=== PATIENT | female | born 1970 | race Caucasian/White ===

== ENCOUNTER 2016-11-09 10:59 | Emergency (ER) | payer BC ==
[2016-11-09 11:09] VITALS: BP 139/86
[2016-11-09] MEDS ORDERED: HYDROcodone/ACETAMIN 5-325 MG* 1 TAB PO ONE (12:01)
--- NOTE | 2016-11-09 12:01 | UC ---
Shoulder Pain HPI - HPI Summary HPI Summary: fell back in to a wall last night - History of Current Complaint Chief Complaint: UCUpperExtremity Stated Complaint: RIGHT SHOULDER PAIN Time Seen by Provider: 11/09/16 11:55 Hx Obtained From: Patient Hx Last Menstrual Period: irreg, 1 month ago ?: No Onset/Duration: Sudden Onset, Lasting Hours - happened 12 hours ago, Still Present Timing: Constant Severity Initially: Severe Severity Currently: Severe Location Of Pain: Is Discrete @ - right shoulder, elbow Pain Intensity: 10 Pain Scale Used: 0-10 Numeric Character: Aching, Throbbing Aggravating Factor(s): Movement Alleviating Factor(s): Ice Associated Signs And Symptoms: Positive: Swelling Related History: Dominant Hand Right - Allergies/Home Medications Allergies/Adverse Reactions: Allergies Allergy/AdvReac Type Severity Reaction Status Date / Time No Known Allergies Allergy Verified 11/09/16 11:10 PMH/Surg Hx/FS Hx/Imm Hx Previously Healthy: No Endocrine History Of: Reports: Thyroid Disease Cardiovascular History Of: Reports: Hypertension - Surgical History Surgical History: Yes Surgery Procedure, Year, and Place: Partial Thyroidectomy, 2012, [facility] Dr. Gambino. Artur SECTION - Family History Known Family History: Positive: Hypertension - Social History Occupation: Disabled - out on disability for 2 more weeks after a bunion surgery Alcohol Use: Occasionally Substance Use Type: None Smoking Status (MU): Heavy Every Day Tobacco Smoker Type: Cigarettes Amount Used/How Often: 1 PPD Length of Time of Smoking/Using Tobacco: 27 Years Have You Smoked in the Last Year: Yes When Did the Patient Quit Smoking/Using Tobacco: 11/09/13 Household Exposure Type: Cigarettes - Immunization History Most Recent Influenza Vaccination: May 2013 Review of Systems Constitutional: Negative Skin: Negative Eyes: Negative ENT: Negative Respiratory: Negative Cardiovascular: Negative Gastrointestinal: Negative Genitourinary: Negative Motor: Decreased ROM - right shoulder, elbow Neurovascular: Negative Musculoskeletal: Arthralgia Neurological: Negative Psychological: Negative All Other Systems Reviewed And Are Negative: Yes Physical Exam Triage Information Reviewed: Yes Appearance: Well-Appearing, Well-Nourished, Pain Distress Vital Signs: Initial Vital Signs Temp 99.5 F 11/09/16 11:03 Pulse 73 11/09/16 11:03 Resp 14 11/09/16 11:03 BP 139/86 11/09/16 11:03 Pulse Ox 98 11/09/16 11:03 Vital Signs Reviewed: Yes Eye Exam: Normal Eyes: Positive: Conjunctiva Clear ENT Exam: Normal ENT: Positive: Normal ENT inspection, Hearing grossly normal. Negative: Nasal congestion, Nasal drainage, Trismus, Muffled/hoarse voice Dental Exam: Normal Neck exam: Normal Neck: Positive: Supple, Nontender, No Lymphadenopathy Respiratory Exam: Normal Respiratory: Positive: Chest non-tender, Lungs clear, Normal breath sounds, No respiratory distress, No accessory muscle use Cardiovascular Exam: Normal Cardiovascular: Positive: RRR, No Murmur, Pulses Normal, Brisk Capillary Refill Musculoskeletal Exam: Normal Musculoskeletal: Positive: No Edema, Strength Limited @ - right arm, ROM Limited @ - right shoulder,right elbow Neurological Exam: Normal Psychological Exam: Normal Skin Exam: Normal Diagnostics - Laboratory Diagnostic Studies Completed/Ordered: small osteocondroma, no acute bone injuries Re-Evaluation - Re-Evaluation First Eval Change: Improved - n/m/c intact proximal and distal to injury Shoulder Course/Dx - Course Assessment/Plan: rice, sling, ibuprofen follow with ortho if needed - Differential Dx/Diagnosis Differential Diagnosis/HQI/PQRI: Contusion, Rotator Cuff Injury, Sprain, Strain Provider Diagnoses: contusion right shoulder Discharge - Discharge Plan Condition: Stable Disposition: HOME Prescriptions: Ibuprofen TAB* [Motrin TAB* 600 MG] 600 mg PO Q6H PRN #30 tab PRN Reason: pain Patient Education Materials: Contusion in Adults (ED), RICE Therapy (ED), Shoulder Pain (ED) Referrals: Shivam Romano MD [Medical Doctor] - 5 Days Carl Arango PA [Primary Care Provider] -
--- NOTE | 2016-11-09 13:04 | RAD ---
INDICATION: Right shoulder injury. TECHNIQUE: 3 views of the right shoulder were obtained. FINDINGS: The bones are in normal alignment. No fracture is seen. There is a small bony exostosis present arising from the proximal diaphysis of the humerus possibly representing a small osteochondroma. Joint spaces appear maintained. IMPRESSION: 1. NO EVIDENCE FOR FRACTURE. 2. POSSIBLE SMALL OSTEOCHONDROMA ARISING FROM THE PROXIMAL HUMERUS.
--- NOTE | 2016-11-09 13:05 | RAD ---
INDICATION: Right elbow injury. TECHNIQUE: 4 views of the right elbow were obtained. FINDINGS: The bones are normal alignment. No joint effusion or acute fracture is seen. There is a small calcification adjacent to the lateral epicondyle suggestive of calcific tendinitis. IMPRESSION: NO EVIDENCE FOR FRACTURE.
== END 2016-11-09 13:31 | disposition home or self-care (01) ==
LOC: UCCORT 10:59
DX: S40.011A Contusion of right shoulder, initial encounter (principal); W18.09XA Striking against other object with subsequent fall, initial encounter; Y93.9 Activity, unspecified; Y92.9 Unspecified place or not applicable; E07.9 Disorder of thyroid, unspecified; I10 Essential (primary) hypertension; F17.210 Nicotine dependence, cigarettes, uncomplicated
CPT/HCPCS: 99213; G0463

== ENCOUNTER 2016-11-20 10:54 | Emergency (ER) | payer BC ==
[2016-11-20 11:03] VITALS: BP 131/70
--- NOTE | 2016-11-20 11:33 | UC ---
Shoulder Pain HPI - HPI Summary HPI Summary: right shoulder pain x 2 weeks + s/p fall on her right shoulder 2 weeks ago , was seen at the urgent care, negative xray for any fracture or dislocation, cont. to have pain and swelling of the right shoulder limited r/o with abduction and internal rotation , - History of Current Complaint Chief Complaint: UCUpperExtremity Stated Complaint: RIGHT ARM/SHOULDER RECHECK Time Seen by Provider: 11/20/16 11:07 Hx Obtained From: Patient Hx Last Menstrual Period: 11/15/16 Onset/Duration: Sudden Onset, Lasting Weeks - 2, Still Present Timing: Constant Severity Initially: Moderate Severity Currently: Moderate Pain Intensity: 10 Pain Scale Used: 0-10 Numeric Character: Aching Aggravating Factor(s): Movement, Lifting, Flexion, Extension, Internal Rotation , External Rotation, Abduction Alleviating Factor(s): Nothing Associated Signs And Symptoms: Positive: Swelling, Weakness. Negative: Redness , Bruising, Fever - Allergies/Home Medications Allergies/Adverse Reactions: Allergies Allergy/AdvReac Type Severity Reaction Status Date / Time No Known Allergies Allergy Verified 11/20/16 11:03 PMH/Surg Hx/FS Hx/Imm Hx Endocrine History Of: Reports: Thyroid Disease Cardiovascular History Of: Reports: Hypertension - Surgical History Surgical History: Yes Surgery Procedure, Year, and Place: Partial Thyroidectomy, 2012, [facility] Dr. Gambino. C SECTION - Family History Known Family History: Positive: Hypertension - Social History Alcohol Use: Rare Substance Use Type: None Smoking Status (MU): Heavy Every Day Tobacco Smoker Type: Cigarettes Amount Used/How Often: 1 PPD Length of Time of Smoking/Using Tobacco: 27 Years Have You Smoked in the Last Year: Yes When Did the Patient Quit Smoking/Using Tobacco: 11/09/13 Household Exposure Type: Cigarettes - Immunization History Most Recent Influenza Vaccination: May 2013 Review of Systems Constitutional: Negative Skin: Negative Eyes: Negative ENT: Negative Respiratory: Negative Musculoskeletal: Arthralgia - right shoulder pain All Other Systems Reviewed And Are Negative: Yes Physical Exam Triage Information Reviewed: Yes Appearance: Well-Appearing, No Pain Distress, Well-Nourished Vital Signs: Initial Vital Signs Temp 98.5 F 11/20/16 10:58 Pulse 61 11/20/16 10:58 Resp 18 11/20/16 10:58 BP 131/70 11/20/16 10:58 Pulse Ox 98 11/20/16 10:58 Vital Signs Reviewed: Yes Eyes: Positive: Conjunctiva Clear ENT Exam: Normal ENT: Positive: Normal ENT inspection, Hearing grossly normal, Pharynx normal Neck exam: Normal Neck: Positive: Supple, Nontender, No Lymphadenopathy Respiratory: Positive: Chest non-tender, Lungs clear, Normal breath sounds Cardiovascular: Positive: RRR, No Murmur, Pulses Normal Musculoskeletal: Positive: Other: - right shoulder: + tenderness lateral shoulder, + swelling, Pain with flexion, abduction, internal and external rotation limited stregth on flexion , extension and internal rotation Shoulder Course/Dx - Differential Dx/Diagnosis Provider Diagnoses: right shoulder pain Discharge - Discharge Plan Condition: Stable Disposition: HOME Prescriptions: Naproxen 500 mg PO BID #20 tab Patient Education Materials: Shoulder Pain (ED) Forms: *Work Release Referrals: Shivam Romano MD [Medical Doctor] - As Soon As Possible Carl Arango PA [Primary Care Provider] - Additional Instructions: concern about Rotator cuff injury please call the orth physician for eval and tx]
== END 2016-11-20 11:25 | disposition home or self-care (01) ==
LOC: UCCORT 10:54
DX: M25.511 Pain in right shoulder (principal); E07.9 Disorder of thyroid, unspecified; I10 Essential (primary) hypertension; E89.0 Postprocedural hypothyroidism; F17.210 Nicotine dependence, cigarettes, uncomplicated
CPT/HCPCS: 99212; G0463

== ENCOUNTER 2016-12-10 09:58 | Day surgery (SDC) | payer BC ==
--- NOTE | 2016-12-09 17:03 | HP ---
DATE OF ADMISSION: 12/10/2016. DATE OF OFFICE VISIT: 12/09/2016. ATTENDING SURGEON: Dr. Vivian Darling. (DICTATED BY RAMIREZ FERRARI) PROCEDURE: Right shoulder arthroscopic rotator cuff repair, decompression and debridement. CHIEF COMPLAINT: Right shoulder pain. HISTORY OF PRESENT ILLNESS: Ada is a 46-year-old female who presents to the clinic with ongoing right shoulder pain due to a rotator cuff tear and biceps tendonitis. She has failed conservative measures and therefore agreed to undergo a right shoulder arthroscopic rotator cuff repair, decompression, and debridement with Dr. Darling on 12/10/16. PAST MEDICAL HISTORY: 1. Hypertension. 2. Hypercholesterolemia. 3. Thyroid disease. 4. Chronic kidney disease. PAST SURGICAL HISTORY: 1. Partial thyroidectomy. 2. . 3. Bunion repair. MEDICATIONS: 1. Percocet 5/325 one tab by mouth every 4 hours as needed for pain. 2. Levothyroxine 200 mcg one by mouth daily. 3. Naproxen 500 mg one by mouth twice a day. 4. Ramipril 2.5 mg one by mouth daily. ALLERGIES: No known drug allergies. FAMILY HISTORY: Positive for cancer, Lupus, hypertension, and diabetes. Denies family history of DVT, PE or complications with anesthesia. SOCIAL HISTORY: She lives with her spouse. She is disabled. She is a heavy smoker, she smokes five or six cigarettes a day. She reports occasional alcohol consumption. She denies illegal drug use. REVIEW OF SYSTEMS: General: Negative for fevers, chills, night sweats. No known anesthesia problems. HEENT: Negative for headache, lightheadedness, or syncopal episodes. Integumentary: Negative for abrasions, lesions, or open wounds. Cardiothoracic: Negative for chest pain, palpitations, or edema. Positive for hypertension. Pulmonary: Negative for shortness of breath with exertion, chronic cough, or COPD. GI: Negative for nausea, vomiting, diarrhea , constipation or GERD. : Negative for nocturia, urinary frequency, history of UTI, or kidney problems. Musculoskeletal: Positive for current complaint. Neurologic: Negative for numbness, tingling, history of seizure, stroke, or epilepsy. Endocrine: Positive for thyroid disease. Negative for diabetes. Heme: Negative for easy bruising, bleeding disorder, history of DVT. Infectious Disease: Negative for history of MRSA, hep C, or HIV. PHYSICAL EXAMINATION GENERAL: Well-developed, well-nourished, 46-year-old female in no acute distress. VITAL SIGNS: Height 62, weight 186, BMI 34.0. Pulse 63, blood pressure 131/87 , respiratory rate 16, temperature 98.9. HEENT: Normocephalic, atraumatic. Throat clear. NECK: Supple. CARDIO: Regular rate and rhythm. S1, S2. No murmurs, gallops, or rubs. No edema. PULMONARY: Lungs are clear to auscultation bilaterally. No wheezing, rhonchi or rales. ABDOMEN: Positive bowel sounds. Soft, nontender. MUSCULOSKELETAL: Right upper extremity: The skin is intact. No warmth or erythema. Nontender to palpation. Nontender to AC joint. Forward flex 150, abduction 150, external rotation 45, T10. +4/5 strength in the infraspinatus and supraspinatus testing. +5/5 strength in subscapularis testing. Positive Neer, , [place]. +2 radial pulse, +2 ulnar pulse. Sensation is intact to light touch distally. NEUROLOGIC: Alert and oriented times three. Cranial nerves intact. Sensation intact to light touch. STUDIES: MRI of the right shoulder revealed full thickness rotator cuff tear involving the supraspinatus and infraspinatus tendon. IMPRESSION: Right shoulder rotator cuff tear and biceps tendonitis. PLAN: The patient is scheduled to undergo a right shoulder arthroscopic rotator cuff repair, decompression and debridement by Dr. Darling on 12/10/2016. She will return to the office in 10 to 14 days postop for follow-up and suture removal. Percocet will be used for postop pain management. RAMIREZ FERRARI [id number]/[facility] #: [id number] MTDYarelis
[~2016-12-10 09:58] MED LIST: Buffered Lidocaine 0.9% SYRIN* 5 ML/SYR SYRINGE ONE; Famotidine IV* 10 MG/ML 2 ML (20 mg) IV ONE; Famotidine IV* 10 MG/ML 2 ML (20 mg) ONE; Morphine INJ* 2 MG/ML 1 ML SYRINGE IV PRN; PROCHLORPERAZINE INJ 5 MG/ML 2 ML VIAL IV PRN; Scopolamine 1.5 mg* PATCH TRANSDERM PRN; ceFAZolin 2 GM PREMIX(*) 2 GM/50 ML BAG IVPB ONE; oxyCODONE/Acetamin 5/325 MG* TAB PO PRN
[2016-12-10 10:11] LABS: UR Preg Internal Control QC Line Present
[2016-12-10] MEDS: Buffered Lidocaine 0.9% SYRIN* 5 ML/SYR SYRINGE INTRADERM ONE ×2 (11:07→11:08)
[2016-12-10] MEDS ORDERED: Midazolam* 1 MG/ML 5 ML VIAL (5 MG) ONE (11:41)
[2016-12-10] MEDS ORDERED: fentaNYL* 50 MCG/ML 2 ML VIAL (100 MCG VIAL) ONE ×2 (11:41→16:18)
[2016-12-10] MEDS ORDERED: KETAMINE HCL* 50 MG/ML 10 ML VIAL ONE (11:41)
[2016-12-10 11:45] LABS: BUN/Creatinine Ratio 12.7 (8-20); Calcium 9.3 mg/dL (8.6-10.3); EGFR Non-African American 87.9 (>60); Potassium 3.8 mmol/L (3.5-5.0)
[2016-12-10] MEDS ORDERED: PROCHLORPERAZINE INJ 5 MG/ML 2 ML VIAL ONE (14:41)
[2016-12-10] MEDS ORDERED: Ondansetron INJ* 2 MG/ML VIAL ONE (14:41)
[2016-12-10] MEDS ORDERED: Lidocaine 2% PF * 5 ML VIAL ONE (14:41)
[2016-12-10] MEDS ORDERED: Dexamethasone IV* 4 MG/ML 1 ML (4 MG) ONE (14:41)
[2016-12-10] MEDS ORDERED: Propofol* 10 MG/ML 20 ML BTL IV PUSH ONE (14:41)
[2016-12-10] MEDS ORDERED: Bupivacaine 0.25% SDV* 30 ML ONE (14:42)
[2016-12-10] MEDS: fentaNYL* 50 MCG/ML 2 ML VIAL (100 MCG VIAL) IV PRN ×2 (16:19→16:39)
[2016-12-10] MEDS ORDERED: oxyCODONE/Acetamin 5/325 MG* TAB ONE (16:21)
[2016-12-10 17:09] VITALS: BP 138/87
[2016-12-13] MEDS ORDERED: Scopolomine PATCH Remove* 1 NOTE MISC PATCH OFF ONE (05:58)
--- NOTE | 2016-12-14 05:01 | OP ---
CC: Primary Care Physician OPERATIVE REPORT: DATE OF OPERATION: 12/10/16 DATE OF : 66 ATTENDING SURGEON: Vivian Darling MD JACQUARD LACE WEAVER: RAMIREZ Leonard As workforce development assistant was needed for the entirety of the case to help with positioning, traction, and was utilized throughout all portions of the case. ANESTHESIOLOGIST: Dr. Campuzano. ANESTHESIA: General interscalene block. PRE-OP DIAGNOSIS: Massive rotator cuff tear of the supra and infraspinatus tendon with bicipital tendonitis. POST-OP DIAGNOSIS: Massive rotator cuff tear of the supra and infraspinatus tendon with bicipital tendonitis. OPERATIVE PROCEDURE: 1. Right shoulder arthroscopy. 2. Excessive glenohumeral debridement including biceps tenotomy. 3. Rotator cuff repair of the supra and infraspinatus tendon done arthroscopically. 4. Subacromial decompression. COMPLICATIONS: None. ESTIMATED BLOOD LOSS: Minimal. IMPLANTS USED: 3 [employer]hew Healicoil 4.75 mm and 2 Multifix anchors. INDICATIONS: Ada Wadsworth is a 46-year-old female who sustained an injury to her right shoulder when she fell and hit a wall while inebriated 6 weeks previously. She had had persistent pain and inability to raise her shoulder up. She is very young. She tried antiinflammatories. Tried some short course of physical therapy, underwent an injection by my partner, and underwent an MRI. The MRI demonstrated a full-thickness, mildly retracted tear of the supraspinatus tendon. After an extensive discussion of the risks and benefits and on discussion said that she had stiffness and poor range of motion at baseline. We talked about surgical treatment. She is 46 years old and she does smoke half a pack cigarettes per day and a discussion was made that she needs to quit smoking and I did recommend urgently fixing her rotator cuff. She verbalized understanding. She now elects to proceed with surgery. Risks and benefits were discussed at length, including but not limited to bleeding, infection, damage to nerves, vessels, surrounding structures, wound nonhealing, persistent pain, need for further surgery, risk of anesthesia, scarring, incomplete relief of symptoms, risk of DVT, and risk of retear. She has elected to proceed with surgery. DESCRIPTION OF PROCEDURE: The patient was greeted in the preoperative area by the attending surgeon. Correct extremity was marked and consent was confirmed. The patient then underwent interscalene nerve block by the anesthesiologist after which the patient was brought back to the operating suite where she was placed in supine position on the operating room table. She then underwent general anesthesia with endotracheal intubation after which the patient was placed in the right lateral decubitus position. The right arm was then draped unsterile with 10 pounds of traction. An axillary roll was placed, all bony prominences were padded. She was secured with pegboard. The right shoulder was then prepped and draped in the usual sterile fashion beginning with chlorhexidine soap, scrub, and alcohol wipe, and a final prep with ChloraPrep. After appropriate surgical pause indicating side, site, procedure, and administration of antibiotics, the standard posterolateral portal was made sharp with an 11 blade. The scope was positioned inside the joint and the joint was examined. There were grade 0 to 1 changes of the humeral head. There was grade 1 changes of the glenoid. There was unstable tearing of the anterior, posterior, and superior labrum. The biceps was torn at the anchor and subluxed anteriorly. The subscapularis was intact. The anterior recess was full of friable inflamed tissue. There was evidence of a full-thickness tear in the rotator cuff. After the anterior portal was made in an outside-in- fashion, the biceps tenotomy was then done and the stump was debrided back. The anterior, posterior, superior labrum were debrided and there was a small chondroplasty that was done. At this point, the scope was then repositioned in the subacromial space. In the subacromial space, there was abundant bursa present. The lateral portal was made in an [id number]. Shaver was used to debride this back to expose the rotator cuff which had been retracted to the level of the cartilage surface. This was a large U-shaped tear including the supra and infraspinatus tendon. The bursa was then removed. The anterior surface of the acromion was then skeletonized using the electrocautery device which revealed an anterolateral spur. The CA ligament was pealed back. The 4-0 oval annette was then used to perform a small acromioplasty. All excess fluid and debris was removed at this point. Attention was then directed to the rotator cuff. The cuff then carefully mobilized, it was somewhat stiff. The electrocautery device was used to help release this to allow for greater mobilization. At this point, the cuff tissue was debrided back using the shaver. The greater tuberosity was prepared in the usual fashion with the shaver and the electrocautery device as well as the rasp. At this point, three 4.75 Healicoil anchors were placed in the medial row beginning anteriorly to posterior, approximately 1 cm apart. These were placed with excellent purchase. The sutures were passed in a horizontal mattress configuration and were passed through the supraspinatus and then infraspinatus tendon. The knots were then tied down. Then, after division of the strands, approximately 5 strands were retained and passed through a knotless Multifix anchor which was then positioned along the lateral row anteriorly. The remanning sutures were then passed through a second Multifix anchor which was more posteriorly based, but also served as fixation of the lateral anchor. This allowed for compression of the cuff and for potentially greater stability. All fluid and debris was removed from the shoulder at this point. The portals were closed with 3-0 nylon. Sterile dressings were applied , the Cryo/Cuff as well as an UltraSling. She was awoken from anesthesia, transferred to PACU in stable condition. POSTOPERATIVE PLAN: She will be nonweightbearing. She will be in a sling for 6 weeks. She was advised to quit smoking. She will be discharged on pain medications. DVT prophylaxis considered but deferred due to no previous personal or family history. I will see the patient back in 10 to 14 days. [id number]/[facility] #: [id number] ANDRÉS
== END 2016-12-10 17:33 | disposition home or self-care (01) ==
LOC: OR 09:58
PROVIDERS: ATTEND Orthopaedic Surgery
DX: S46.011A Strain of muscle(s) and tendon(s) of the rotator cuff of right shoulder, initial encounter (principal); M75.21 Bicipital tendinitis, right shoulder; W19.XXXA Unspecified fall, initial encounter; Y92.9 Unspecified place or not applicable; I12.9 Hypertensive chronic kidney disease with stage 1 through stage 4 chronic kidney disease, or unspecified chronic kidney disease; N18.9 Chronic kidney disease, unspecified; E78.00 Pure hypercholesterolemia, unspecified; E03.9 Hypothyroidism, unspecified; F17.200 Nicotine dependence, unspecified, uncomplicated
CPT/HCPCS: 36415; 80048; 81025; A9270-GY; C1713; J0690; J0780; J1100; J2250; J2405; J2704; J3010

== ENCOUNTER 2017-01-23 17:16 | Emergency (ER) | payer BC ==
[2017-01-23 17:30] VITALS: BP 131/79
--- NOTE | 2017-01-23 18:21 | UC ---
Knee Pain HPI - HPI Summary HPI Summary: 46 yo female with 2 month hx of left knee pain/swelling, giving away and locking up no recalled trauma - History of Current Complaint Chief Complaint: UCLowerExtremity Stated Complaint: LEFT KNEE SWELLING Time Seen by Provider: 01/23/17 17:20 Hx Obtained From: Patient Hx Last Menstrual Period: 11/15/16 Onset/Duration: Gradual Onset, Lasting Weeks Severity Initially: Moderate Severity Currently: Severe Pain Intensity: 4 Pain Scale Used: 0-10 Numeric Aggravating Factor(s): Movement, Weight Bearing Alleviating Factor(s): Rest Associated Signs And Symptoms: Positive: Swelling Able to Bear Weight: Yes - Allergies/Home Medications Allergies/Adverse Reactions: Allergies Allergy/AdvReac Type Severity Reaction Status Date / Time No Known Allergies Allergy Verified 01/23/17 17:22 PMH/Surg Hx/FS Hx/Imm Hx Previously Healthy: Yes - Surgical History Surgical History: Yes Surgery Procedure, Year, and Place: Partial Thyroidectomy, 2012, [facility] Dr. Gambino. C SECTION 2003 - [place]. LEFT FOOT BUNIONECTOMY AND [place] 2016. RIGHT rotator cuff 12/10/16 - Family History Known Family History: Positive: Hypertension - Social History Alcohol Use: None Substance Use Type: Excessive Caffeine Substance Use Comment - Amount & Last Used: reports she drinks 2 full pots of coffee per day Smoking Status (MU): Heavy Every Day Tobacco Smoker Type: Cigarettes Amount Used/How Often: 2 PPD for 31 years Length of Time of Smoking/Using Tobacco: 27 Years Have You Smoked in the Last Year: Yes When Did the Patient Quit Smoking/Using Tobacco: 11/09/13 Household Exposure Type: Cigarettes - Immunization History Most Recent Influenza Vaccination: 2016 Most Recent Tetanus Shot: UTD Most Recent Pneumonia Vaccination: N/A Review of Systems Constitutional: Negative Skin: Negative Eyes: Negative ENT: Negative Respiratory: Negative Cardiovascular: Negative Gastrointestinal: Negative Genitourinary: Negative Motor: Negative Neurovascular: Negative Musculoskeletal: Arthralgia Neurological: Negative Psychological: Negative All Other Systems Reviewed And Are Negative: Yes Physical Exam Triage Information Reviewed: Yes Appearance: Well-Appearing, No Pain Distress, Well-Nourished Vital Signs: Initial Vital Signs Temp 98.8 F 01/23/17 17:24 Pulse 84 01/23/17 17:24 Resp 16 01/23/17 17:24 BP 131/79 01/23/17 17:24 Pulse Ox 99 01/23/17 17:24 Eye Exam: Normal ENT: Positive: Hearing grossly normal. Negative: Nasal congestion, Nasal drainage, Trismus, Muffled/hoarse voice Neck: Positive: Supple Respiratory: Positive: Lungs clear, Normal breath sounds, No respiratory distress Cardiovascular: Positive: RRR, No Murmur Musculoskeletal: Positive: Other: - see image Neurological: Positive: Alert Psychological Exam: Normal Skin Exam: Normal Knee Pain Course/Dx - Differential Dx/Diagnosis Provider Diagnoses: left knee pain. suspect menical tear. ? loose body Discharge - Discharge Plan Condition: Stable Disposition: HOME Patient Education Materials: Meniscus Tear (ED) Referrals: Shivam Romano MD [Medical Doctor] - 3 Days Additional Instructions: ice twice daily wear knee immobilizer when up walking I think you have torn cartilage in your knee causing your symptoms Images Front/Back of Body, Lg (Floyd): 1 - effusion, stable joint, tender medial and lateral joint lines , antalgic gait
--- NOTE | 2017-01-23 18:39 | RAD ---
Indication: LEFT knee medial and lateral pain and swelling for multiple months. Comparison: No relevant prior exams available on the [facility] PACS for comparison. Technique: LEFT knee: AP, tunnel, lateral, sunrise views. Report: Small suprapatellar joint effusion. Negative for fracture or malalignment. Minimal osteophytosis. Negative for significant joint space narrowing. Unremarkable soft tissue contours. IMPRESSION: Kellgren and Romie grade 1 osteoarthritis.
== END 2017-01-23 18:41 | disposition home or self-care (01) ==
LOC: UCCORT 17:16
DX: M25.562 Pain in left knee (principal); M17.12 Unilateral primary osteoarthritis, left knee; F17.210 Nicotine dependence, cigarettes, uncomplicated
CPT/HCPCS: 99212; G0463

== ENCOUNTER 2017-08-03 09:40 | Day surgery (SDC) | payer OTHER ==
--- NOTE | 2017-07-13 07:21 | HP ---
PREOPERATIVE HISTORY AND PHYSICAL: DATE OF ADMISSION/SURGERY: 08/03/17 DATE OF OFFICE VISIT: 07/10/17 PROCEDURE: Right shoulder arthroscopic rotator cuff repair. ATTENDING SURGEON: Vivian Darling MD.* (DICTATED BY RAMIREZ FERRARI) CHIEF COMPLAINT: Right shoulder pain. HISTORY OF PRESENT ILLNESS: Ada is a 46-year-old female who presents to the clinic for followup of her right shoulder. She has a history of a rotator cuff repair on the right side in November, however, has re-torn. She understands that she needs surgery, but has been working on smoking cessation with Chantix. She states that her pain has become worse in the past week. She rates it as an 8/10, severe pain especially at night. The patient is intermittent and very intense. She reports no recent injury or no recent falls. She is on her 6th day of Chantix and states that she has decreased from a pack of cigarettes a day down to 6 a day and is planning on completely quitting by this Thursday. She denies noticing fevers, chills and she is doing well otherwise. PAST MEDICAL HISTORY: 1. Hypertension. 2. Hypercholesterolemia. 3. Hypothyroidism. 4. Chronic kidney disease. PAST SURGICAL HISTORY: 1. Partial thyroidectomy. 2. . 3. Left foot bunion repair and right shoulder rotator cuff repair. Denies prior complications with anesthesia. MEDICATIONS: 1. Chantix 0.5 mg x11 and 1 mg x42, take as directed. 2. Levothyroxine 200 mcg one by mouth daily. 3. Ramipril 2.5 mg one by mouth daily. ALLERGIES: No known drug allergies. FAMILY HISTORY: Positive for cancer, lupus, hypertension, and diabetes. Denies family history of DVT or PE. SOCIAL HISTORY: She lives with her spouse. She is disabled. She smokes 6 cigarettes a day. She denies alcohol use. She denies illegal drug use. REVIEW OF SYSTEMS: A 14-point review of systems was reviewed with the patient. Positive for current complaint, otherwise negative. Denies fevers, chills, chest pain, or shortness of breath. Denies history of bleeding disorder. Denies history of DVT or PE. PHYSICAL EXAMINATION GENERAL: A 46-year-old well-developed, well-nourished female, in no acute distress. Alert and oriented x3. Appropriate mood and affect. VITAL SIGNS: Height 62 inches, weight 189 pounds, pulse 62, blood pressure 152/ 96, temperature 97.5, BMI of 34.6. HEENT: Normocephalic, atraumatic. PERRLA. Throat clear. NECK: Supple. PULMONARY: Lungs are clear to auscultation bilaterally. No wheezing, rhonchi, or rales. CARDIO: Regular rate and rhythm. S1 and S2. No murmurs, gallops, or rubs. No edema. ABDOMEN: Positive bowel sounds. Soft, nontender. MUSCULOSKELETAL: Right upper extremity, well healed surgical incision. No warmth or erythema. Forward flexion to 90, passive to 160, abduction to 80, passive to 150 with significant pain, external rotation to 50, internal rotation to posterior hip. +4/5 strength to rotator cuff testing. +2 radial pulse. Sensation is intact to light touch distally. NEUROLOGIC: Alert and oriented x 3. Cranial nerves are grossly intact. Sensation is intact to light touch. STUDIES: MR arthrogram of the right shoulder reveals a massive large tear involving the supraspinatus and infraspinatus. IMPRESSION: Right shoulder rotator cuff tear. PLAN: The patient is scheduled to undergo a right shoulder arthroscopic rotator cuff repair with Dr. Darling on 08/03/17. She will return to the office in 10-14 days postop for followup and suture removal. Percocet was sent for postop pain management and Keflex for antibiotic prophylaxis. RAMIREZ FERRARI [id number]/[facility] #: [id number] ANDRÉS
[~2017-08-03 09:40] MED LIST changes: +Buffered Lidocaine 0.9% SYRIN* 5 ML/SYR SYRINGE INTRADERM ONE; -Buffered Lidocaine 0.9% SYRIN* 5 ML/SYR SYRINGE ONE; -Famotidine IV* 10 MG/ML 2 ML (20 mg) IV ONE; -Famotidine IV* 10 MG/ML 2 ML (20 mg) ONE; -Morphine INJ* 2 MG/ML 1 ML SYRINGE IV PRN; -PROCHLORPERAZINE INJ 5 MG/ML 2 ML VIAL IV PRN; -Scopolamine 1.5 mg* PATCH TRANSDERM PRN; -ceFAZolin 2 GM PREMIX(*) 2 GM/50 ML BAG IVPB ONE; -oxyCODONE/Acetamin 5/325 MG* TAB PO PRN
[2017-08-03] MEDS ORDERED: ceFAZolin 2 GM in 100 MLS NS (*) BAG IVPB ONE (09:47)
[2017-08-03] MEDS ORDERED: fentaNYL* 50 MCG/ML 2 ML VIAL (100 MCG VIAL) ONE (12:27)
[2017-08-03] MEDS ORDERED: Midazolam* 1 MG/ML 2 ML VIAL (2 MG) ONE (12:28)
[2017-08-03] MEDS ORDERED: Bupivacaine 0.25% SDV* 30 ML ONE (12:29)
[2017-08-03] MEDS ORDERED: methylPREDNISolone ACETATE 80* 80 MG/ML 1 ML VIAL ONE (12:29)
[2017-08-03] MEDS ORDERED: ROPIVACAINE 5 MG/ML 30 ML BTL (0.5%) ONE (12:30)
[2017-08-03] MEDS ORDERED: Lidocaine 2% PF * 5 ML VIAL ONE (13:28)
[2017-08-03] MEDS ORDERED: Propofol* 10 MG/ML 20 ML BTL IV PUSH ONE (13:28)
[2017-08-03] MEDS ORDERED: Dexamethasone IV* 4 MG/ML 1 ML (4 MG) ONE (13:39)
[2017-08-03] MEDS ORDERED: Naloxone* 0.4 MG/ML 1 ML VIAL IV PRN (13:46)
[2017-08-03] MEDS ORDERED: fentaNYL* 50 MCG/ML 2 ML VIAL (100 MCG VIAL) IV PRN (13:46)
[2017-08-03] MEDS ORDERED: Ondansetron INJ* 2 MG/ML VIAL IV PRN (13:46)
[2017-08-03 15:15] VITALS: BP 138/77
--- NOTE | 2017-08-09 18:18 | OP ---
OPERATIVE REPORT: DATE OF OPERATION: 08/03/17 DATE OF : 66 SURGEON: Vivian Darling MD BRUSHER AND SHEARER: RAMIREZ Saldivar An construction project assistant was needed for the entirety of the case to help with positioning, retraction, and was utilized throughout all portion of the case. ANESTHESIOLOGIST: Dr. Mulligan. ANESTHESIA: General with interscalene block. PRE-OP DIAGNOSIS: Right shoulder failed rotator cuff repair. POST-OP DIAGNOSIS: Right shoulder failed massive rotator cuff repair of the infra and supraspinatus tendon. OPERATIVE PROCEDURE: 1. Removal of implant x3. 2. Revision decompression. 3. Extensive glenohumeral debridement with chondroplasty 4. Repair of massive retracted supra and infraspinatus tear in a double row fashion. COMPLICATIONS: None. ESTIMATED BLOOD LOSS: Minimal. IMPLANTS USED: Two 4.75 Healicoil and one Multifix. INDICATIONS: Ada Wadsworth is a 46-year-old female who underwent a previous rotator cuff repair with biceps tenotomy and decompression. This surgery was done in November 2016. She initially did well but there were questionable complaints. She also had a very massive tear and had a history of smoker, needless to say she had persistent pain after a couple of months of therapy and we imaged her to find that she had re-torn and now had a massive supra and infraspinatus tear. Risks and benefits of surgery were discussed at length including but are not limited to bleeding, infection, damage to nerves, vessels , surrounding structures, wound nonhealing, persistent pain, need for further surgery, scarring, stiffness, incomplete relief of symptoms, risks of anesthesia. The patient did confirm quitting smoking approximately 3 to 4 weeks prior to this after I gave her prescription for Chantix and she plans to not smoking for at least four months postoperatively. DESCRIPTION OF PROCEDURE: The patient was greeted in the preoperative area by the attending surgeon. Correct extremity was marked and consent was confirmed. Patient was then brought back to the operating suite, where she underwent interscalene nerve block by the anesthesiologist and she tolerated well. She underwent general anesthesia with endotracheal intubation after which she was placed in the left lateral decubitus position. All bony prominences were padded. She was secured with pegboard. The right shoulder was draped unsterile with 10 pounds of traction. The right shoulder was prepped and draped in the usual sterile fashion, beginning with chlorhexidine soap, scrub, and alcohol wipe and a final prep of ChloraPrep. After appropriate surgical pause indicating side, site, procedure and administration of antibiotics, the posterolateral portal was made sharply with an 11 blade. Scope was introduced into the joint. The joint was examined. There were grade 2 changes of the glenohumeral joint with small unstable fraying. The anterior portal was made in an outside-in fashion. There was evidence of full thickness massive tear of the supra and infraspinatus tendon. Subscap was intact. The shaver was used to debride the glenohumeral joint. There was evidence of full thickness massive tears. Scope was repositioned in the subacromial space. The undersurface of the acromion was skeletonized using electrocautery device. A revision decompression was then performed using electrocautery device with 4- 0 oval annette. There is abundant synovectomy and bursectomy present. There is evidence of split down the center of the infra and supraspinatus tendon with the flap tissues enveloped to a scar against the subdeltoid to the inferior aspect of the deltoid. It appeared to be a T shaped tear. She had completely failed the repair previously done. Every single suture and anchor that was placed with position on top of the tuberosity and they required being removed for repair to be done. The sutures were carefully cut and removed from the anchors. Any remaining pieces of anchors were also removed in the entirety. At least three large stranding sutures were removed as they were blocking placement of the newer anchors. The shaver was used to debride the unstable flaps. The electrocautery was used to remove the bursa from the undersurface of the deltoid. This allowed for some visualization of the tendon but the tendon was very hard to mobilize; therefore, releases had to be done above and below the rotator cuff using electrocautery device and blunt devices to prevent accidental damage to the nerve. The muscle cuff was fully mobilized and electrocautery device, the cuff was then prepared in a side-to- side fashion with two interrupted sutures repairing supra and infraspinatus tendon. Then the cuff was able to reapproximated to the bone. The greater tuberosity was then prepared in the usual fashion with the rasp as well as the arthroscopic annette. Once this was done , the cuff was then carefully mobilized. The anchors were placed with excellent purchase, two 4.75 Healicoil with excellent purchase. A small awl was then used to do a small microfracture to allow for extra points of fixation to the bone. The sutures were then passed in a horizontal mattress configuration and tagged down using arthroscopic knot tying technique. The remaining sutures were then passed through Multifix anchor, which was placed lateral to the previous Multifix. Once the repair was complete, final images were obtained. The wounds was copiously irrigated with sterile saline. The portals were closed with 3- 0 nylon. Sterile dressings were applied and a Cryo/ Cuff and UltraSling were applied. She was awoken from anesthesia and transferred to PACU in stable condition. POSTOPERATIVE PLAN: She will be nonweightbearing. She will be in the sling for approximately six weeks. She will be allowed no active range of motion for at least 12 weeks. She will be discharged on pain medications and antibiotics. She will be allowed elbow, hand, and wrist range of motion. She is not allowed any abduction and forward flexion of the shoulder. DVT prophylaxis considered but deferred due to no previous personal or family and I will see the patient back in 10 to 14 days. [id number]/[facility] #: [id number] MTDD
== END 2017-08-03 15:30 | disposition home or self-care (01) ==
LOC: OREAST 09:40
PROVIDERS: ATTEND Orthopaedic Surgery
DX: M75.101 Unspecified rotator cuff tear or rupture of right shoulder, not specified as traumatic (principal); E03.9 Hypothyroidism, unspecified; E78.00 Pure hypercholesterolemia, unspecified; N18.9 Chronic kidney disease, unspecified; F17.210 Nicotine dependence, cigarettes, uncomplicated; I12.9 Hypertensive chronic kidney disease with stage 1 through stage 4 chronic kidney disease, or unspecified chronic kidney disease
CPT/HCPCS: 81025; C1713; J1040; J1100; J2250; J2704; J2795; J3010

== ENCOUNTER 2017-11-16 12:11 | Day surgery (SDC) | payer OTHER ==
[~2017-11-16 12:11] MED LIST changes: +Dexamethasone IV* 4 MG/ML 1 ML (4 MG) IV SLOW PU ONE
[2017-11-16] MEDS ORDERED: ceFAZolin 2 GM PREMIX (*) 2 GM/50 ML BAG IVPB ONE (12:28)
[2017-11-16] MEDS ORDERED: Dexamethasone IV* 4 MG/ML 1 ML (4 MG) ONE (12:29)
[2017-11-16] MEDS ORDERED: Buffered Lidocaine 0.9% SYRIN* 5 ML/SYR SYRINGE ONE (12:51)
[2017-11-16] MEDS ORDERED: Atracurium* 10 MG/ML 10 ML VIAL ONE (13:44)
[2017-11-16] MEDS ORDERED: ROPIVACAINE 5 MG/ML 30 ML BTL (0.5%) ONE (13:44)
[2017-11-16] MEDS ORDERED: fentaNYL* 50 MCG/ML 2 ML VIAL (100 MCG VIAL) ONE (13:48)
[2017-11-16] MEDS ORDERED: Propofol* 10 MG/ML 20 ML BTL IV PUSH ONE (13:48)
[2017-11-16] MEDS ORDERED: Ondansetron INJ* 2 MG/ML VIAL ONE (13:48)
[2017-11-16] MEDS ORDERED: Midazolam* 1 MG/ML 5 ML VIAL (5 MG) ONE (13:48)
[2017-11-16] MEDS ORDERED: Ketorolac INJ* 30 MG/ML 1 ML VIAL ONE (13:48)
[2017-11-16] MEDS ORDERED: Naloxone* 0.4 MG/ML 1 ML VIAL IV PRN (15:05)
[2017-11-16] MEDS ORDERED: fentaNYL* 50 MCG/ML 2 ML VIAL (100 MCG VIAL) IV PRN (15:05)
[2017-11-16] MEDS ORDERED: DiMENhydriNATE IV* 50 MG/ML VIAL IV PUSH PRN (15:05)
[2017-11-16] MEDS ORDERED: oxyCODONE/Acetamin 5/325 MG* TAB PO PRN (15:05)
[2017-11-16 16:15] VITALS: BP 120/78
--- NOTE | 2017-11-17 19:19 | OP ---
CC: PCP OPERATIVE REPORT: DATE OF OPERATION: 11/16/17 DATE OF : 66 SURGEON: Vivian Darling MD SWIMMING POOL INSTALLER: RAMIREZ Saldivar An library assistant was needed for the entirety of the case to help with positioning, retraction, and was ut ilized throughout all portions of the case including deployment of the various anchors and sutures an d devices. ANESTHESIOLOGIST: Dr. Hughes. ANESTHESIA: General interscalene block. PRE-OP DIAGNOSIS: Right shoulder failed rotator cuff repair. POST-OP DIAGNOSIS: Right shoulder failed rotator cuff repair. OPERATIVE PROCEDURE: Right shoulder revision, rotator cuff repair of supraspinatus tendon with REGEN ETEN patch augmentation. COMPLICATIONS: None. ESTIMATED BLOOD LOSS: Minimal. IMPLANTS USED: One 4.75 Healicoil, 1 MultiFix, and 1 medium-sized patch with tendon and bone bettie . INDICATIONS: Ada Wadsworth is a 47-year-old female who had a previous rotator cuff repair, which h as already a revision, who was doing well postoperatively and then she fell at around 8 weeks postop, she was diagnosed with a retear, although was not the extent of the original tear. Risks and benefi ts of surgery were discussed at length. She has failed conservative management, had persistent pain. Risks include, but are not limited to bleeding, infection, damage to nerves, vessels, surrounding st ructures, wound nonhealing, persistent pain, need for surgery, scarring, stiffness, incomplete relief of symptoms, and risk of anesthesia. OPERATIVE NOTE: The patient was greeted in the preoperative area by the attending surgeon. Correct extremity was marked and consent was confirmed. The patient was brought back to the operating suite where she was placed in supine position on the operating table. She then underwent interscalene nerv e block by the anesthesiologist after which she was appropriately positioned in the bed in the latera l decubitus position with all bony prominences padded and secured with a pegboard. The right arm was draped unsterile with 10 pounds of traction. The right shoulder was then prepped and draped in the usual sterile fashion, beginning with chlorhexidine soap scrub and alcohol wipe and a final prep with ChloraPrep. After appropriate surgical pause indicating side, site, procedure, and administration of antibiotics, the standard posterolateral portal was made sharply with #11 blade. The scope was introduced into t he joint. The joint was examined. There was evidence of a full thickness tear of the anterior portio n of the supraspinatus tendon. Glenohumeral joint had grade 1 changes. There was abundant synovitis present. The quality of the tissue that was torn appeared to be thin. The sutures that have been pr eviously placed were visualized. The scope was then positioned in subacromial space and the cuff ten don was visualized posteriorly. The tear had healed, but the supraspinatus tear had failed. There wa s evidence of njes-jw-pncy suture and medial to that everything had healed fine. The cuff tissue was carefully mobilized. The sutures were removed from the tendon carefully. There was obvious stretch on this, as many of the sutures that could be possibly removed or removed as well as any remaining an chors. After this was done, the adhesions were also released from the bursal side and there were num erous adhesions. Once the cuff tissue was mobilized and the greater tuberosity was exposed, this was then rasped with a rasp as well as 4-0 oval annette to gently decorticate to allow for good bony bleedi ng bed. At this point, one 4.75 Healicoil was placed through a separate stab incision. This was amarjit walter in excellent purchase. The sutures were then passed through the tendon in a horizontal mattress configuration. The very most posterior one was passed in a atns-ij-shje between remaining posterior portion and supraspinatus as well as some of the infraspinatus and the newly torn supraspinatus tendo n. These were then tied down. A second free suture was then used to dcuu-pr-ghar repair at the most distal end of the supraspinatus because the side was bit of under coverage. At this point, all sutu re strands were passed through a lateral anchor, 4.75 Healicoil which was placed with excellent purch ase and allowed for compression of the cuff. At this point, the REGENETEN patch was brought into the field, size medium was used. This was then placed overlying the repaired rotator cuff. These were secured with tendon bettie and bone bettie. This was placed in excellent purchase without complica tion. The wounds were copiously irrigated with sterile saline. Final images were obtained. The por tals were closed with 3-0 nylon. Sterile dressings were applied. A Cryo/Cuff and UltraSling were ap plied. She was awoken from anesthesia and transferred to the PACU in stable condition. POSTOPERATIVE PLAN: She will be nonweightbearing. She will be discharged on pain medication and ant ibiotics. She will be allowed elbow, hand, and wrist range of motion. DVT prophylaxis was considere d, but deferred due to no previous personal or family history. I will see the patient back in approx imately 14 days. [id number]/[facility] #: [id number]
--- NOTE | 2017-11-19 20:17 | HP ---
HISTORY AND PHYSICAL: DATE OF ADMISSION: 11/16/[address] [facility] ATTENDING PHYSICIAN: Dr. Vivian Darling. HISTORY OF PRESENT ILLNESS: Ada follows up for her MRI results of her right shoulder. She is status post revision rotator cuff repair, which she then fell and landed on, on 09/26/17. She is having a lot of pain; pain is about a 7/10. She denies fevers or chills. She is not smoking. She cannot raise the arm up. Most recent surgery was 08/03/17. PAST MEDICAL HISTORY: High blood pressure, hypercholesterolemia, hypothyroidism , chronic kidney disease, recent diagnosis of psoriasis. PAST SURGICAL HISTORY: Thyroidectomy; ; left foot bunion surgery; right shoulder rotator cuff repair, then right shoulder revision rotator cuff repair, July 2017. No prior complications of anesthesia. MEDICATIONS: Include: 1. Lisinopril. 2. Levothyroxine. 3. Ramipril. 4. Chantix. 5. Triamcinolone cream. 6. Methotrexate weekly. ALLERGIES: None. FAMILY HISTORY: Significant for cancer, lupus, hypertension, diabetes. No history of DVT or PE. SOCIAL HISTORY: She lives with her spouse. She is right-hand dominant, disabled. No longer smokes. Denies alcohol. No illegal drug use. REVIEW OF SYSTEMS: A 14-point review of systems reviewed with patient, significant for recent diagnosis of psoriasis as well as the above complaint, otherwise remainder of the systems negative. PHYSICAL EXAMINATION GENERAL: She is in no acute distress. She is well developed and well nourished. She is alert and oriented x3. She has pleasant mood and normal affect. Good balance and coordination of the extremities. HEENT: EOMI. CHEST: Clear to auscultation. HEART: Regular rate and rhythm. ABDOMEN: Soft, nontender. EXTREMITIES: Examination of right shoulder demonstrates skin is intact. There is no erythema or warmth. She has well-healed incision. Forward flex actively to 16, passively to 120, abduct actively to 40 degrees, externally rotate to 30. Sensate to light touch grossly distally and brisk cap refill. DIAGNOSTIC STUDIES: MRI was reviewed on 10/07/17 demonstrates that some of the rotator cuff has been healed, but there is a full-thickness retracted tear in the supraspinatus and multiple anchors in place. No fracture dislocation. ASSESSMENT AND PLAN: She fell and failed part of her revision repair. At this point, I would recommend another revision. We would do revision repair and possible use of graft called REGENETEN. We reviewed the risks and benefits of surgery and we will plan for surgery at her earliest convenience. Plan will be right shoulder revision, rotator cuff repair with possible patch augmentation. [id number]/[facility] #: [id number] ANDRÉS
== END 2017-11-16 16:51 | disposition home or self-care (01) ==
LOC: OREAST 12:11
PROVIDERS: ATTEND Orthopaedic Surgery
DX: S46.011D Strain of muscle(s) and tendon(s) of the rotator cuff of right shoulder, subsequent encounter (principal); W19.XXXD Unspecified fall, subsequent encounter; Y92.9 Unspecified place or not applicable; F17.210 Nicotine dependence, cigarettes, uncomplicated; G89.18 Other acute postprocedural pain
CPT/HCPCS: 81025; C1713; J0690; J1100; J1885; J2250; J2405; J2704; J2795; J3010

== ENCOUNTER 2018-06-23 15:53 | Emergency (ER) | payer SELFPAY ==
[2018-06-23 16:16] VITALS: BP 123/87
--- NOTE | 2018-06-23 17:59 | UC ---
Laceration HPI - HPI Summary HPI Summary: Patient presents for wound evaluation to her left dorsum. Patient states last night at work, [employer], she was pushing a cart when she scraped her hand along the nail. Patient states the classroom a couple Steri-Strips. Patient states she has ongoing pain. Patient has not taken anything for pain. Patient is right-hand dominant. No drainage. Patient is not inial, otherwise. Patient states she is concerned she has a fracture and states "" deep. Patient without any paresthesias. Patient states he was well-controlled. Patient's last tetanus was one month ago. Patient's medications reviewed this visit. - History Of Current Complaint Chief Complaint: UCWounds Stated Complaint: W/C LEFT HAND INJURY/WOUND Time Seen by Provider: 06/23/18 17:59 Hx Obtained From: Patient Hx Last Menstrual Period: unknown Laceration Location: Hand Mechanism Of Injury: Sharp Trauma Onset/Duration: Sudden Onset Severity: Severe Pain Intensity: 9 Pain Scale Used: 0-10 Numeric Aggravating Factors: Position, Movement - Allergies/Home Medications Allergies/Adverse Reactions: Allergies Allergy/AdvReac Type Severity Reaction Status Date / Time No Known Allergies Allergy Verified 06/23/18 16:13 PMH/Surg Hx/FS Hx/Imm Hx Previously Healthy: Yes - Surgical History Surgical History: Yes Surgery Procedure, Year, and Place: C SECTION 2003 - [place]. Partial Thyroidectomy, 2012, [facility] Dr. Gambino. LEFT FOOT BUNIONECTOMY AND [place] 2016 [place]. 03/2017 [facility]OSCOPY [place]. RIGHT rotator cuff 12/10/16 AND and 11/16/17 - Family History Known Family History: Positive: Hypertension - Social History Occupation: Employed Full-time Lives: With Family Alcohol Use: None Substance Use Type: None Substance Use Comment - Amount & Last Used: reports she drinks 2 full pots of coffee per day Smoking Status (MU): Heavy Every Day Tobacco Smoker Type: Cigarettes Amount Used/How Often: 2 PPD for 32 years, HAS BEEN USING CHANTIX FOR PAST 15 DAYS Length of Time of Smoking/Using Tobacco: 32 YRS Have You Smoked in the Last Year: Yes When Did the Patient Quit Smoking/Using Tobacco: 07/12/17 Household Exposure Type: Cigarettes - Immunization History Most Recent Influenza Vaccination: 2016 Most Recent Tetanus Shot: UTD Most Recent Pneumonia Vaccination: N/A Review of Systems All Other Systems Reviewed And Are Negative: Yes Skin: Positive: Other - left dorsum wrist Physical Exam - Summary Physical Exam Summary: Vital Signs Reviewed: Yes A+Ox3, no distress Eyes: Conjunctiva Clear ENT: Hearing grossly normal neck: supple Respiratory: Positive: No respiratory distress, No accessory muscle use Cardiovascular: skin color reflect adequate perfusion 2+ radial, 2 + ulnar CBT < 2 sec Musculoskeletal: + flex/ext wrist, elbow, pronate/supiante + TTP mid dorsum 3rd, 4th MT no crepitus Neurological: Positive: Alert, ambulatory without difficulty + thumb up, a ok, fingers cross, finger spread Psychological: Positive: Normal Response To Family Skin: Positive: no rash, no ecchymosis, eft dorsum hand Triage Information Reviewed: Yes Vital Signs: Initial Vital Signs Temp 97.8 F 06/23/18 16:11 Pulse 65 06/23/18 16:11 Resp 16 06/23/18 16:11 BP 123/87 06/23/18 16:11 Pulse Ox 98 06/23/18 16:11 Diagnostics - Radiology No standard instances Radiology Interpretation Completed By: ED Physician - no fx, STS Laceration Course/Dx - Course/Dx Course Of Treatment: Patient presents to urgent care with wound to dorsum of left hand. Patient states that occurred last night work when she scratched on a nail. Wound was cleansed and covered with Steri-Strips. Patient states she' s got ongoing pain. No analgesia taken. Patient states that swollen she's concerns of fractures to work center here. Patient without any paresthesias. Patient with tenderness to palpation in the area of injury. Patient's joints above and below full range of motion without difficulty. We'll image. We'll cleanse wound. Patient's tetanus up-to-date. Discussed with patient will not suture given the duration of injury however after evaluation will considered Steri-Strips again. Patient comfortable in agreement with plan. - Diagnosis Provider Diagnosis: Contusion of left hand, Open wound of left hand Discharge - Sign-Out/Discharge Documenting (check all that apply): Patient Departure All imaging exams completed and their final reports reviewed: No - Discharge Plan Condition: Stable Disposition: HOME Prescriptions: Cephalexin CAP* [Keflex 500 CAP*] 500 mg PO TID #21 cap Fluconazole [Diflucan 150 MG (NF)] 150 mg PO ONCE PRN #1 tab PRN Reason: vaginal yeast infection Patient Education Materials: Contusion in Adults (ED), Laceration Without Closure (ED) Forms: *Gen. Provider Communication Referrals: Yolanda Still PA [Primary Care Provider] - David Williamson MD [Medical Doctor] - (Call tomorrow for a recheck apponitment ) Additional Instructions: - As discussed, your wound was not closed today because it has been more than 12 hours since your injury. - It is recommended you take antibiotics as prescribed until gone - wear splint for comfort and support - apply ice (wrapped in a towel0 for 10 minutes, 2-3 times a day - monitor your wound for signs of infection - reddness, red streaking, odor - Okay to alternate ibuprofen (Advil, Motrin) and tylenol every 3hours for pain. take with food - contact Dr. Williamson (occupational medicine office) tomorrow morning to schedule a recheck this week Contact Dr. Williamson or return here with questions or concerns - you have been given a prescription for Diflucan - okay to take if you develop a yeast infection from the antibiotic As discussed, your radiograph was reviewed by the provider that treated you tonight. It will be read by a radiologist tomorrow morning. If there is a finding other than that discussed with you today, you will receive a call from a care provider. - Billing Disposition and Condition Condition: STABLE Disposition: Home
[2018-06-23] MEDS ORDERED: Acetaminophen TAB* 325 MG PO ONE (18:09)
--- NOTE | 2018-06-24 07:47 | UC ---
- Progress Note Progress Note: Patient Name: JOHNNIE JAQUEZ Medical Record#: [id number] Ordering Physician: Ynes Seymour MD Acct.#: [id number] : 1970 Age: 47 Sex: F Location: [facility] Exam Date: 06/23/181803 ADM Status: [facility] ER Order Information: HAND - LEFT MINIMUM 3 VIEWS Accession Number: [id number] CPT: 46848 INDICATION: Left hand injury. TECHNIQUE: 4 views of the left hand were obtained. FINDINGS: There is soft tissue swelling noted dorsal to the metacarpal bones. The bones are normal alignment. No fracture is seen. Joint spaces appear maintained. IMPRESSION: SOFT TISSUE SWELLING, NO FRACTURE IS SEEN. R0 Preliminary Imaging Read R0 <Electronically signed by Karsten Richardson MD in OV> 06/24/18716 Dictated By: Karsten Richardson MD Dictated Date/Time: 06/24/18716 Transcribed Date/Time: 06/24/18714 Copy to: CC:Ynes Seymour MD; Yolanda Still PA-C Imaging - [facility] Imaging - [facility] Urgent [facility] [address] [place] [address] ph [phone]) ph ([phone]) ph ([phone]) This report is only to be considered final once signed by the Provider(s) as displayed in the "<Electronically Signed by >" field (s). Absence of a signature indicates the report is in a draft status and still needs to be finalized. In the event this document was created by someone other than the signing Provider, the individual initiating the document will be listed in the "Entered by:" or "Dictated by:" burr. 1 of 1 Course/Dx - Diagnoses Provider Diagnoses: Contusion of left hand, Open wound of left hand Discharge - Sign-Out/Discharge Documenting (check all that apply): Post-Discharge Follow Up All imaging exams completed and their final reports reviewed: Yes - Discharge Plan Condition: Stable Disposition: HOME Prescriptions: Cephalexin CAP* [Keflex 500 CAP*] 500 mg PO TID #21 cap Fluconazole [Diflucan 150 MG (NF)] 150 mg PO ONCE PRN #1 tab PRN Reason: vaginal yeast infection Patient Education Materials: Contusion in Adults (ED), Laceration Without Closure (ED) Forms: *Gen. Provider Communication Referrals: David Williamson MD [Medical Doctor] - (Call tomorrow for a recheck apponitment ) Yolanda Still PA [Primary Care Provider] - Additional Instructions: - As discussed, your wound was not closed today because it has been more than 12 hours since your injury. - It is recommended you take antibiotics as prescribed until gone - wear splint for comfort and support - apply ice (wrapped in a towel0 for 10 minutes, 2-3 times a day - monitor your wound for signs of infection - reddness, red streaking, odor - Okay to alternate ibuprofen (Advil, Motrin) and tylenol every 3hours for pain. take with food - contact Dr. Williamson (occupational medicine office) tomorrow morning to schedule a recheck this week Contact Dr. Williamson or return here with questions or concerns - you have been given a prescription for Diflucan - okay to take if you develop a yeast infection from the antibiotic As discussed, your radiograph was reviewed by the provider that treated you tonight. It will be read by a radiologist tomorrow morning. If there is a finding other than that discussed with you today, you will receive a call from a care provider. - Billing Disposition and Condition Condition: STABLE Disposition: Home
== END 2018-06-23 18:56 | disposition home or self-care (01) ==
LOC: UCCORT 15:53
DX: X58.XXXA Exposure to other specified factors, initial encounter (principal); Y93.89 Activity, other specified; Y92.099 Unspecified place in other non-institutional residence as the place of occurrence of the external cause; Y99.0 Civilian activity done for income or pay; S61.412A Laceration without foreign body of left hand, initial encounter; F17.210 Nicotine dependence, cigarettes, uncomplicated
CPT/HCPCS: 99213; A9270-GY; G0463

== ENCOUNTER 2018-12-09 14:16 | Emergency (ER) | payer BC ==
--- OUTSIDE RECORDS SUMMARY | 2018-12-09 14:29 | XMS REPORT | Continuity of Care Document ---
:1970 External Reference #:[id number] Author Name Jo Clarke, [facility] Address [address] [place] [address] Care Team Providers Name Role Phone Yolanda Still PA-C Care Team Information Dehairer Unavailable Yolanda Still PA-C Primary Care Physician Unavailable Payers Date Identification Numbers Payment Provider Subscriber Policy Number: [id number] [facility] Ada Wadsworth PayID: [id number] [address] [address] [place] [address] Problems Active Problems Provider Date Localized, primary osteoarthritis Edith Grubbs PA Onset: 09/01/2018 Family History Date Family Member(s) Observation Comments Father No Current Problems Mother due to Cancer () Social History Type Date Description Comments Sex Unknown Marital Status Lives With Occupation [employer] Work Status Currently Working 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 Dominance Right-handed ETOH Use Denies alcohol use Recreational Drug Use Denies Drug Use Tobacco Use Start: Unknown Patient is a current smoker, smokes every day Tobacco Use Start: Unknown Heavy tobacco smoker (more than 10 cigarettes/day) Smoking Status Reviewed: 11/29/18 Heavy tobacco smoker (more than 10 cigarettes/day) Allergies, Adverse Reactions, Alerts Description No Known Drug Allergies Medications Active Medications SIG Qnty Indications Ordering Provider Date Levothyroxine Sodium Take One Tablet Unknown 200mcg By Mouth Every Tablets Day Lisinopril Take One Tablet Unknown 5mg Tablets By Mouth Every Day Omeprazole Take One Capsule Unknown 40mg Capsules DR By Mouth Every Day Ibuprofen Take One Tablet Unknown 600mg Tablets Four Times A Day as Needed For Pain Medications Administered in Office Medication SIG Qnty Indications Ordering Provider Date Euflexxa 2mL prefilled syringe Edith Grubbs PA 09/16/2018 Injection Euflexxa 2mL prefilled syringe Edith Grubbs PA 09/09/2018 Injection Euflexxa 2mL prefilled syringe Edith Grubbs PA 09/01/2018 Injection Vital Signs Date Vital Result Comment 11/29/2018 12:56pm BP Systolic Sitting Left Arm 140 mmHg BP Diastolic Sitting Left Arm 88 mmHg Body Temperature 99.5 F Heart Rate 81 /min Weight 177.00 lb O2 % BldC Oximetry 97 % 11/11/2018 1:28pm BP Systolic Sitting Right Arm 124 mmHg BP Diastolic Sitting Right Arm 81 mmHg Body Temperature 97.6 F Heart Rate 59 /min Height 63 inches 5'3" Weight 174.25 lb BMI (Body Mass Index) 30.9 kg/m2 BSA (Body Surface Area) 1.82 m2 [place] body weight in kilograms 52 kg O2 % BldC Oximetry 99 % Pain Level 5 Lt knee 11/08/2018 1:55pm BP Systolic Sitting Right Arm 127 mmHg BP Diastolic Sitting Right Arm 83 mmHg Body Temperature 97.6 F Heart Rate 63 /min Height 63 inches 5'3" Weight 178.50 lb BMI (Body Mass Index) 31.6 kg/m2 BSA (Body Surface Area) 1.84 m2 [place] body weight in kilograms 52 kg O2 % BldC Oximetry 98 % Pain Level 8 Lt Knee 10/28/2018 4:32pm BP Systolic Sitting Right Arm 108 mmHg BP Diastolic Sitting Right Arm 71 mmHg Body Temperature 98.3 F Heart Rate 79 /min Height 63 inches 5'3" Weight 176.00 lb BMI (Body Mass Index) 31.2 kg/m2 BSA (Body Surface Area) 1.83 m2 [place] body weight in kilograms 52 kg O2 % BldC Oximetry 94 % 09/16/2018 4:33pm BP Systolic 134 mmHg BP Diastolic 87 mmHg Body Temperature 97.2 F Heart Rate 90 /min Height 63 inches 5'3" Weight 177.00 lb BMI (Body Mass Index) 31.4 kg/m2 BSA (Body Surface Area) 1.84 m2 [place] body weight in kilograms 52 kg O2 % BldC Oximetry 97 % room air Pain Level 7 09/09/2018 4:32pm BP Systolic 122 mmHg BP Diastolic 82 mmHg Body Temperature 97.5 F Heart Rate 77 /min Height 62.5 inches 5'2.50" Weight 175.00 lb BMI (Body Mass Index) 31.5 kg/m2 BSA (Body Surface Area) 1.82 m2 [place] body weight in kilograms 51 kg O2 % BldC Oximetry 95 % room air Pain Level 5 09/01/2018 8:55am BP Systolic Sitting Left Arm 129 mmHg BP Diastolic Sitting Left Arm 82 mmHg Body Temperature 97.0 F Heart Rate 68 /min Height 63 inches 5'3" with sneakers on Weight 174.00 lb BMI (Body Mass Index) 30.8 kg/m2 BSA (Body Surface Area) 1.82 m2 [place] body weight in kilograms 52 kg O2 % BldC Oximetry 97 % Results Test Date Facility Test Result H/L Range Note Laboratory test 06/30/2017 [facility] Thyroid Stim 10.20 uIU/mL High 0.30-4.[address] Hormone [place], [place] [id number] [phone] Free T4 1.24 ng/dL N 0.76-1.46 Laboratory test 01/23/2017 [facility] Thyroid Stim 1.96 uIU/mL N 0.30-4.[address] Hormone [place], [place] [id number] [phone] Free T4 0.99 ng/dL N 0.76-1.46 Basic Metabolic 12/10/2016 [facility] Sodium 135 mmol /L N 133-145 Panel [phone] Potassium 3.8 mmol/L N 3.5-5.0 Chloride 103 mmol/L N 101-111 Co2 Carbon Dioxide 26 mmol/L N 22-32 Anion Gap 6 mmol/L N 2-11 Glucose 91 mg/dL N 70-100 Blood Urea Nitrogen 9 mg/dL N 6-24 Creatinine 0.71 mg/dL N 0.51-0.95 BUN/Creatinine Ratio 12.7 N 8-20 Calcium 9.3 mg/dL N 8.6-10.3 Egfr Non- 87.9 N >60 Egfr 113.0 N >60 2 Laboratory test 12/10/2016 [facility] Negative N Negative 3 finding [phone] (HCG) Urine Laboratory test 12/19/2014 [facility] Rubeola 112.[address] Antibodies, Immune>29.9AU [place] [address] Igg [phone] Mumps Antibodies, Igg 132.0 Immune>10.9AU 5 Varicella-Zoster Virus IgG Ab 407 Immune>165ind 6 Hepatitis B 12/19/2014 [facility] HBSAb Nonreactive Surface [address] Interpretation [place] [address] [phone] Hepatitis B Surface Antibody < 3.1 mIU/mL <3.1 7 Rubella IgG 12/19/2014 [facility] Rubella IgG Reactive Antibody [address] [place] [place] [address] [phone] Rubella IgG Iu/ml 140.2 IU/mL >=10.0 8 1 E03.9 2 Because ethnic data is not always readily available, this report includes an eGFR for both -Americans and non- Americans. The National Kidney Disease Education Program (NKDEP) does not endorse the use of the MDRD equation for patients that are not between the ages of 18 and 70, are , have extremes of body size, muscle mass, or nutritional status, or are non- or non-. According to the National Kidney Foundation, irrespective of diagnosis, the stage of the disease is based on the level of kidney function: Stage Description GFR(mL/min/1.73 m(2)) 1 Kidney damage with normal or decreased GFR 90 2 Kidney damage with mild decrease in GFR 60-89 3 Moderate decrease in GFR 30-59 4 Severe decrease in GFR 15-29 5 Kidney failure <15 (or dialysis) 3 If is still suspected, please repeat test after 48 to 72 hours. This test detects intact HCG only and is indicated for the early detection of . 4 Negative <25.0 Equivocal 25.0 - 29.9 Positive >29.9 Presence of antibodies to Rubeola is presumptive evidence of immunity except when acute infection is suspected. Performed at: RN - [facility] [address] [id number] [employer] Music Teacher: Jamilah Soto MD, Phone: [phone] 5 Negative <9.0 Equivocal 9.0 - 10.9 Positive >10.9 A positive result generally indicates past exposure to Mumps virus or previous vaccination. 6 Negative <135 Equivocal 135 - 165 Positive >165 A positive result generally indicates exposure to the pathogen or administration of specific immunoglobulins, but it is not indication of active infection or stage of disease. 7 Values >10 mIU/ML considered IMMUNE 8 Values >=10.0 IU/mL are positive for IgG antibodies to rubella virus and are considered IMMUNE. Procedures Date Code Description Status 11/16/2018 76993 Arthroscopy w/meniscectomy including meniscal shaving Completed 10/28/2018 86702 Radiology, Knee 3 Views Completed 09/16/2018 Asp./Injection major joint Completed 09/09/201876576 Asp./Injection major joint Completed 09/01/2018 Asp./Injection major joint Completed 05/02/2013 57704 Stress Test Interpre And Report Only Completed 05/02/2013 88037 Stress Test Physician Super Only Completed 05/02/2013 35591 Stress Test Physician Super Only Completed 05/02/2013 41905 Myocardial Imaging Tomographic Multiple Study AT Rest Or Completed Stress 11/14/2010 78136 Anesthesia, Neck Organ Surgery Not Otherwise Spec 1Yr Or Completed Older 11/08/2010 42220 EKG Interpretation And Report Only Completed Encounters Type Date Location Provider Dx Diagnosis Office Visit 11/29/2018 Podiatry Office Santiago Michele DPM L60.0 Ingrowing nail 1:00p L85.8 Other specified epidermal thickening M20.11 Hallux valgus (acquired), right foot M79.672 Pain in left foot Office Visit 11/08/2018 Orthopaedic Homar Dobbs, M17.12 Unilateral primary 2:00p Office osteoarthritis, left knee M23.8x2 Other internal derangements of left knee Office Visit 10/28/2018 Orthopaedic Romie M17.12 Unilateral primary 4:30p Office RAMIREZ Sharma osteoarthritis, left knee Office Visit 09/01/2018 Orthopaedic Romie M25.562 Pain in left knee 9:00a Office RAMIREZ Sharma M17.12 Unilateral primary osteoarthritis, left knee Office Visit 04/27/2013 9:43a Steven Brand 786.50 [facility] DO [facility] 530.81 Esophageal Reflux Plan of Treatment 11/29/2018 - Santiago Michele DPML60.0 Ingrowing nailL85.8 Other specified epidermal thickeningComments:The intractable plantar keratoma tissue was cleaned with alcohol prep and excised en toto with a sterile #15 blade on a #3 handle. The site was covered with moleskin. The patient was counseled on howto manage the lesion home using either a pumice stone or ped-eggFollow up: Follow up when necessary for IPKM20.11 Hallux valgus (acquired), right footM79.672 Pain in left foot
--- OUTSIDE RECORDS SUMMARY | 2018-12-09 14:29 | XMS REPORT | Continuity of Care Document ---
:1970 External Reference #:[id number] Author Name Jo Clarke, [facility] Address [address] [place] [address] Care Team Providers Name Role Phone Yolanda Still PA-C Care Team Information Fish Pitcher Unavailable Yolanda Still PA-C Primary Care Physician Unavailable Payers Date Identification Numbers Payment Provider Subscriber Policy Number: [id number] [facility] Ada Wadsworth PayID: [id number] [address] [address] [place] [address] Problems Active Problems Provider Date Localized, primary osteoarthritis Edith Grubbs PA Onset: 09/01/2018 Family History Date Family Member(s) Observation Comments Father No Current Problems Mother due to Cancer () Social History Type Date Description Comments Sex Unknown Marital Status Lives With Occupation [employer] Work Status Currently 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 Right-handed ETOH Use Denies alcohol use Recreational Drug Use Denies Drug Use Tobacco Use Start: Unknown Patient is a current smoker, smokes every day Tobacco Use Start: Unknown Heavy tobacco smoker (more than 10 cigarettes/day) Smoking Status Reviewed: 11/03/18 Heavy tobacco smoker (more than 10 cigarettes/day) [...] Injection Vital Signs Date Vital Result Comment 11/11/2018 1:28pm BP Systolic Sitting Right Arm 124 mmHg BP Diastolic Sitting Right Arm 81 mmHg Body Temperature 97.6 F Heart Rate 59 /min Height 63 inches 5'3" Weight 174.25 lb BMI (Body Mass Index) 30.9 kg/m2 BSA (Body Surface Area) 1.82 m2 [employer] body weight in kilograms 52 kg O2 % BldC Oximetry 99 % Pain Level 5 Lt knee 11/08/2018 1:55pm BP Systolic Sitting Right Arm 127 mmHg BP Diastolic Sitting Right Arm 83 mmHg Body Temperature 97.6 F Heart Rate 63 /min Height 63 inches 5'3" Weight 178.50 lb BMI (Body Mass Index) 31.6 kg/m2 BSA (Body Surface Area) 1.84 m2 [facility] body weight in kilograms 52 kg O2 % BldC Oximetry 98 % Pain Level 8 Lt Knee 10/28/2018 4:32pm BP Systolic Sitting Right Arm 108 mmHg BP Diastolic Sitting Right Arm 71 mmHg Body Temperature 98.3 F Heart Rate 79 /min Height 63 inches 5'3" Weight 176.00 lb BMI (Body Mass Index) 31.2 kg/m2 BSA (Body Surface Area) 1.83 m2 [facility] body weight in kilograms 52 kg O2 % BldC Oximetry 94 % 09/16/2018 4:33pm BP Systolic 134 mmHg BP Diastolic 87 mmHg Body Temperature 97.2 F Heart Rate 90 /min Height 63 inches 5'3" Weight 177.00 lb BMI (Body Mass Index) 31.4 kg/m2 BSA (Body Surface Area) 1.84 m2 [facility] body weight in kilograms 52 kg O2 % BldC Oximetry 97 % room air Pain Level 7 09/09/2018 4:32pm BP Systolic 122 mmHg BP Diastolic 82 mmHg Body Temperature 97.5 F Heart Rate 77 /min Height 62.5 inches 5'2.50" Weight 175.00 lb BMI (Body Mass Index) 31.5 kg/m2 BSA (Body Surface Area) 1.82 m2 [facility] body weight in kilograms 51 kg O2 % BldC Oximetry 95 % room air Pain Level 5 09/01/2018 8:55am BP Systolic Sitting Left Arm 129 mmHg BP Diastolic Sitting Left Arm 82 mmHg Body Temperature 97.0 F Heart Rate 68 /min Height 63 inches 5'3" with sneakers on Weight 174.00 lb BMI (Body Mass Index) 30.8 kg/m2 BSA (Body Surface Area) 1.82 m2 [facility] body weight in kilograms 52 kg O2 % BldC Oximetry 97 % Results Test Date Facility Test Result H/L Range Note Laboratory test 06/30/2017 [facility] Thyroid Stim 10.20 uIU/mL High 0.30-4.20 [address] Hormone [place], [place] [address] [phone] Free T4 1.24 ng/dL N 0.76-1.46 Laboratory test 01/23/2017 [facility] Thyroid Stim 1.96 uIU/mL N 0.30-4.[address] Hormone [place], [place] [address] [phone] Free T4 0.99 ng/dL N 0.76-1.46 Basic Metabolic 12/10/2016 [facility] Sodium 135 mmol /L N 133-145 Panel [phone] Potassium 3.8 mmol/L N 3.5-5.0 Chloride 103 [...] N >60 2 Laboratory test 12/10/2016 [facility] Negative N Negative 3 finding [phone] (HCG) Urine Laboratory test 12/19/2014 [facility] Rubeola 112.0 [address] Antibodies, Immune>29.9AU [place] [address] Igg [phone] Mumps Antibodies, Igg 132.0 Immune>10.9AU 5 Varicella-Zoster Virus IgG Ab 407 Immune>165ind 6 Hepatitis B 12/19/2014 [facility] HBSAb Nonreactive Surface [address] Interpret[place] [address] [phone] Hepatitis B Surface Antibody < 3.1 mIU/mL <3.1 7 Rubella IgG 12/19/2014 [facility] Rubella IgG Reactive Antibody [address] [place] [address] [phone] Rubella IgG Iu/ml 140.2 IU/mL >=10.0 8 [...] is suspected. Performed at: RN - [facility] [address] [id number] Sinker Puller: Jamilah Soto MD, Phone: [phone] 5 Negative <9.0 Equivocal 9.0 - 10.9 [...] considered IMMUNE. Procedures Date Code Description Status 10/28/2018 20831 Radiology, Knee 3 Views Completed 09/16/2018 Asp./Injection major joint Completed 09/09/2018 Asp./Injection major joint Completed 09/01/2018 Asp./Injection major joint Completed 05/02/2013 66928 Stress Test Interpre And Report Only Completed 05/02/2013 00097 Stress Test Physician Super Only Completed 05/02/2013 71106 Stress Test Physician Super Only Completed 05/02/2013 94478 Myocardial Imaging Tomographic Multiple Study AT Rest Or Completed Stress 11/14/2010 08426 Anesthesia, Neck Organ Surgery Not Otherwise Spec 1Yr Or Completed Older 11/08/2010 42058 EKG Interpretation And Report Only Completed Encounters Type Date Location Provider Dx Diagnosis Office Visit 11/08/2018 Orthopaedic Office Homar Dobbs MD M17.12 Unilateral primary 2:00p osteoarthritis, left knee M23.8x2 Other internal derangements of left knee Office Visit 10/28/2018 Gael Grubbs M17.12 Unilateral primary 4:30p Office RAMIREZ Sharma osteoarthritis, left knee Office Visit 09/01/2018 Orthopaedic Romie M25.562 Pain in left knee 9:00a Office RAMIREZ Sharma M17.12 Unilateral primary osteoarthritis, left knee Office Visit 04/27/2013 9:43a Steven Brand 786.50 Pain Chest [facility] 530.81 Esophageal Reflux Plan of Treatment Future Appointment(s):11/16/2018 9:45 am - Homar Dobbs MD at Operating Room08/2018 1:15 pm - Jo Clarke [facility] at Orthopaedic Oaxgbz7712/20/2018 1: 00 pm - Santiago Michele DPM at Podiatry Wwuldf7111/11/2018 - [facility] Pain in left kneeM17.12 Unilateral primary osteoarthritis, left kneeAllComments:Patient is scheduled to undergo a left knee arthroscopy with Dr. Dobbs on Thursday next week. She will have nothing to eat or drink after midnight. Surgical consent was signed in the office today. The rest of the plan will be per her admission orders. She will contact the office sooner with any questions or concerns.
[2018-12-09 14:43] VITALS: BP 91/52
--- NOTE | 2018-12-09 15:01 | ED ---
Lower Extremity - HPI Summary HPI Summary: 48 yr old with the complaint of pain to the right lateral foot. Onset 3 weeks ago. She stubbed her right lateral foot when using her walker post op for surgery on the left knee. She has pain that is moderate and associated bruise and swelling over the 5th MP area right foot. Worse with walking. No other complaints. - History of Current Complaint Chief Complaint: UCLowerExtremity Stated Complaint: RT FOOT INJURY-LITTLE TOE Time Seen by Provider: 12/09/18 14:39 Hx Last Menstrual Period: "2 months ago" Pain Intensity: 7 - Allergies/Home Medications Allergies/Adverse Reactions: Allergies Allergy/AdvReac Type Severity Reaction Status Date / Time No Known Allergies Allergy Verified 12/09/18 14:38 Home Medications: Home Medications Acetaminop/Codeine 30 MG TAB* [Tylenol/Codeine 30 MG TAB*] 1 tab QID PRN [History Confirmed 12/09/18] PMH/Surg Hx/FS Hx/Imm Hx Endocrine/Hematology History: Reports: Hx Thyroid Disease - HYPOTHYROID Denies: Hx Bone Marrow Disease, Hx Diabetes, Hx Sickle Cell Disease, Hx Anemia Cardiovascular History: Reports: Hx Hypertension Denies: Hx Pacemaker/ICD Respiratory History: Denies: Hx Asthma, Other Respiratory Problems/Disorders GI History: Reports: Hx Gastroesophageal Reflux Disease Denies: Other GI Disorders History: Reports: Other Problems/Disorders - followed by dr wilkerson in [place] every 6 months Denies: Hx Renal Disease Musculoskeletal History: Reports: Hx Arthritis - knees, shoulders, Other Musculoskeletal History - bunionectomy and hammer toe repair done september 19, 2016 in [place] Sensory History: Denies: Hx Cataracts, Hx Contacts or Glasses, Hx Glaucoma, Hx Hearing Aid Opthamlomology History: Denies: Hx Cataracts, Hx Contacts or Glasses, Hx Glaucoma Psychiatric History: Denies: Hx Panic Disorder - Cancer History Hx Chemotherapy: No - Surgical History Surgery Procedure, Year, and Place: C SECTION 2003 - [place]. Partial Thyroidectomy, 2012, [facility] Dr. Gambino. LEFT FOOT BUNIONECTOMY AND [place] 2016 [place]. 03/2017 ENDOSCOPY [place]. RIGHT rotator cuff 12/10/16 AND and 11/16/17. LEFT KNEE, OCTOBER 2018 Hx Anesthesia Reactions: No Infectious Disease History: No Infectious Disease History: Denies: Traveled Outside the [place] in Last 30 Days - Family History Known Family History: Positive: Hypertension - Social History Occupation: Employed Full-time Lives: With Family Alcohol Use: None Substance Use Type: Reports: None Substance Use Comment - Amount & Last Used: reports she drinks 2 full pots of coffee per day Smoking Status (MU): Heavy Every Day Tobacco Smoker Type: Cigarettes Amount Used/How Often: 1 PPD Length of Time of Smoking/Using Tobacco: 32 YRS Have You Smoked in the Last Year: Yes Review of Systems Constitutional: Negative Positive: Other - trauma and pain to lateral right foot , toe and mp area All Other Systems Reviewed And Are Negative: Yes Physical Exam Triage Information Reviewed: Yes Vital Signs On Initial Exam: Initial Vitals Temp Pulse Resp BP Pulse Ox 98.3 F 71 18 91/52 96 12/09/18 14:39 12/09/18 14:39 12/09/18 14:39 12/09/18 14:39 12/09/18 14:39 Vital Signs Reviewed: Yes Appearance: Positive: Well-Appearing, No Pain Distress Skin: Positive: Other - bruise to the right lateral foot at the 5th MP area. Head/Face: Positive: Normal Head/Face Inspection Eyes: Positive: EOMI ENT: Positive: Pharynx normal Neck: Positive: Nontender Respiratory/Lung Sounds: Positive: Other - normal effort Cardiovascular: Positive: Pulses are Symmetrical in both Upper and Lower Extremities Abdomen Description: Negative: Distended Musculoskeletal: Positive: Other - mild STS over the right lateral foot at the 5th MP area. Neurological: Positive: Sensory/Motor Intact, Alert, Oriented to Person Place, Time, CN Intact II-III Psychiatric: Positive: Normal - [place] Coma Scale Best Eye Response: 4 - Spontaneous Best Motor Response: 6 - Obeys Commands Best Verbal Response: 5 - Oriented Coma Scale Total: 15 Diagnostics - Vital Signs Vital Signs Temp Pulse Resp BP Pulse Ox 12/09/18 14:39 98.3 F 71 18 91/52 96 - Laboratory Lab Statement: Any lab studies that have been ordered have been reviewed, and results considered in the medical decision making process. - Radiology right foot Radiology Interpretation Completed By: Radiologist - NAD Lower Extremity Course/Dx - Course Course Of Treatment: 48 yr old with right lateral foot pain over the 5th MP. Xray NEg - Diagnoses Provider Diagnoses: Contusion of foot, right Discharge - Sign-Out/Discharge Documenting (check all that apply): Patient Departure All imaging exams completed and their final reports reviewed: Yes - Discharge Plan Condition: Good Disposition: HOME Patient Education Materials: Contusion in Adults (ED) Referrals: Rosalinda Odell NP [Primary Care Provider] - 2 Days - Billing Disposition and Condition Condition: GOOD Disposition: Home
== END 2018-12-09 15:32 | disposition home or self-care (01) ==
LOC: UCCORT 14:16
DX: S90.31XA Contusion of right foot, initial encounter (principal); W22.8XXA Striking against or struck by other objects, initial encounter; E03.9 Hypothyroidism, unspecified; F17.210 Nicotine dependence, cigarettes, uncomplicated
CPT/HCPCS: 99212; G0463

== ENCOUNTER 2019-06-16 07:34 | Emergency (ER) | payer BC ==
--- OUTSIDE RECORDS SUMMARY | 2019-06-16 07:41 | XMS REPORT | Continuity of Care Document ---
:1970 External Reference #:[id number] Author Name Beto Gambino M.D. 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 Onset: 07/15/2011 Head and neck swelling Beto Gambino M.D. Onset: 07/15/2011 Difficulty speaking Beto Gambino M.D. Onset: 07/15/2011 Gastroesophageal reflux disease Beto Gambino M.D. Onset: 07/15/2011 Social History Type Date Description Comments Sex Unknown Tobacco Use Start: Unknown Current Cigarette Smoker 1 Pack Daily ETOH Use Rarely consumes alcohol Recreational Drug Use Has Used In Past Recreational Drug Use Treated For Substance Abuse In The Past Allergies, Adverse Reactions, Alerts Description No Known Drug Allergies Medications Active Medications SIG Qnty Indications Ordering Provider Date Cyclobenzaprine HCL one tab daily 30tabs Beto Gambino, 05/02/2019 5mg at hs. M.D. Tablets Ramipril 1 x daily Unknown 2.5mg Capsules Omeprazole 1 by mouth 90caps Beto Gambino, 40mg Capsules DR daily M.D. Levothyroxine Sodium 1 by mouth 90tabs Beto Gambino, 200mcg every day M.D. Tablets Immunizations Description No Information Available Vital Signs Date Vital Result Comment 05/23/2019 3:46pm Weight 227.00 lb Height 63.75 inches 5'3.75" BMI (Body Mass Index) 39.3 kg/m2 BP Systolic 106 mmHg BP Diastolic 62 mmHg Heart Rate 69 /min O2 % BldC Oximetry 95 % Body Temperature 98.1 F Pain Level 0 05/02/2019 2:55pm Weight 180.00 lb Height 63.75 inches 5'3.75" BMI (Body Mass Index) 31.1 kg/m2 BP Systolic 131 mmHg BP Diastolic 82 mmHg Heart Rate 59 /min O2 % BldC Oximetry 98 % Body Temperature 97.7 F Pain Level 0 Results Test Acquired Date Facility Test Result H/L Range Note TSH+Free T4 05/02/2019 [facility] TSH 1.35 mcIU/mL Normal 0.34 -5.[address] ([place] [address] Stim Horm) [phone] Free T4 (Free Thyroxine) 1.09 ng/dL Normal 0.61-1.12 2 1 [id number] 2 [id number] Procedures Date Code Description Status 05/02/2019 12867 Cat Scan Orbit/Ear W/O Contrast,computed tomography Completed 05/02/2019 63260 Cat Scan Orbit/Ear W/O Contrast,computed tomography Completed 05/02/2019 10939 Cat Scan Orbit/Ear W/O Contrast,computed tomography Completed 05/02/2019 14754 Nasal Endoscopy, Diag. Completed Medical Devices Description No Information Available Encounters Type Date Location Provider Dx Diagnosis Office Visit 05/02/2019 Main Office Beto Gambino M.D. E03.9 Hypothyroidism, 3:00p unspecified K21.9 Gastro-esophageal reflux disease without esophagitis J34.2 Deviated nasal septum J31.0 Chronic rhinitis M26.602 Left temporomandibular joint disorder, unspecified H70.10 Chronic mastoiditis, unspecified ear Assessments Date Code Description Provider 05/02/2019 E03.9 Hypothyroidism, unspecified Beto Gambino M.D. 05/02/2019 K21.9 Gastro-esophageal reflux disease without Beto Gambino M.D. esophagitis 05/02/2019 J34.2 Deviated nasal septum Beto Gambino M.D. 05/02/2019 J31.0 Chronic rhinitis Beto Gambino M.D. 05/02/2019 M26.602 Left temporomandibular joint disorder, Beto Gambino M.D. unspecified 05/02/2019 H70.10 Chronic mastoiditis, unspecified ear Tyler Devine MD 05/02/2019 H70.10 Chronic mastoiditis, unspecified ear Beto Gambino M.D. Plan of Treatment No Information Available Functional Status Description No Information Available Mental Status Description No Information Available Referrals Description No Information Available
--- OUTSIDE RECORDS SUMMARY | 2019-06-16 07:41 | XMS REPORT | Continuity of Care Document ---
:1970 External Reference #:[id number] Author Name Beto Gambino M.D. 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 Onset: 07/15/2011 Head and neck swelling Beto Gambino M.D. Onset: 07/15/2011 Difficulty speaking Beto aGmbino M.D. Onset: 07/15/2011 Gastroesophageal reflux disease Beto [...] Medications SIG Qnty Indications Ordering Provider Date Ramipril 1 x daily Unknown 2.5mg Capsules Omeprazole 1 by mouth 90caps Beto Gambino, 40mg Capsules DR daily M.D. Levothyroxine Sodium 1 by mouth 90tabs Beto Gambino, 200mcg every day M.D. Tablets Immunizations Description No Information Available Vital Signs Date Vital Result Comment 05/02/2019 2:55pm Weight 180.00 lb Height 63.75 inches 5'3.75" BMI (Body Mass Index) 31.1 kg/m2 BP Systolic 131 mmHg BP Diastolic 82 mmHg Heart Rate 59 /min O2 % BldC Oximetry 98 % Body Temperature 97.7 F Pain Level 0 10/14/2018 3:25pm Weight 176.00 lb Height 63.75 inches 5'3.75" BMI (Body Mass Index) 30.4 kg/m2 BP Systolic 111 mmHg BP Diastolic 75 mmHg Heart Rate 78 /min O2 % BldC Oximetry 97 % Body Temperature 97.8 F Pain Level 0 Results Description No Information Available Procedures Description No Information Available Medical Devices Description No Information Available Encounters Description No Information Available Assessments Description No Information Available Plan of Treatment No Information Available Functional Status Description No Information Available Mental Status Description No Information Available Referrals Description No Information Available
[2019-06-16 07:49] VITALS: BP 130/93
--- NOTE | 2019-06-16 08:21 | UC ---
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 no back pain no change in meds now with left calf pain - History of Current Complaint Chief Complaint: UCLowerExtremity Stated Complaint: BILAT LEG PAIN Time Seen by Provider: 06/16/19 08:05 Hx Obtained From: Patient Hx Last Menstrual Period: 05/18/19 Onset/Duration: Gradual Onset, Lasting Weeks Severity Initially: Moderate Severity Currently: None Pain Intensity: 6 - at night Pain Scale Used: 0-10 Numeric Aggravating Factor(s): Other - sleep Alleviating Factor(s): Other - standing/stretching Able to Bear Weight: Yes Legs: 1 - crampy pain 2 - crampy pain - Allergies/Home Medications Allergies/Adverse Reactions: Allergies Allergy/AdvReac Type Severity Reaction Status Date / Time No Known Allergies Allergy Verified 06/16/19 07:50 PMH/Surg Hx/FS Hx/Imm Hx Previously Healthy: Yes Endocrine History: Hypothyroidism Cardiovascular History: Hypertension GI/ History: Renal Disease - Bergers - Surgical History Surgical History: Yes Surgery Procedure, Year, and Place: C SECTION 2003 - [place]. Partial Thyroidectomy, 2012, [facility] Dr. Gambino. LEFT FOOT BUNIONECTOMY AND [place] 2016 [place]. 03/2017 ENDOSCOPY [place]. RIGHT rotator cuff 12/10/16 AND and 11/16/17. LEFT KNEE, OCTOBER 2018 - Family History Known Family History: Positive: Hypertension, Diabetes - Social History Alcohol Use: None Substance Use Type: Excessive Caffeine Substance Use Comment - Amount & Last Used: reports she drinks 2 full pots of coffee per day Smoking Status (MU): Heavy Every Day Tobacco Smoker Type: Cigarettes Amount Used/How Often: 1 PPD Length of Time of Smoking/Using Tobacco: 32 YRS Have You Smoked in the Last Year: Yes When Did the Patient Quit Smoking/Using Tobacco: 07/12/17 Household Exposure Type: Cigarettes - Immunization History Most Recent Influenza Vaccination: 2016 Most Recent Tetanus Shot: UTD Most Recent Pneumonia Vaccination: N/A Review of Systems All Other Systems Reviewed And Are Negative: Yes Constitutional: Positive: Negative Skin: Positive: Negative Eyes: Positive: Negative ENT: Positive: Negative Respiratory: Positive: Negative Cardiovascular: Positive: Negative Gastrointestinal: Positive: Negative Genitourinary: Positive: Negative Motor: Positive: Negative Neurovascular: Positive: Negative Musculoskeletal: Positive: Myalgia. Negative: Negative - hamstrings/calf Neurological: Positive: Negative Psychological: Positive: Negative Physical Exam Triage Information Reviewed: Yes Appearance: Well-Appearing, No Pain Distress, Well-Nourished Vital Signs: Initial Vital Signs Temp 98.1 F 06/16/19 07:44 Pulse 66 06/16/19 07:44 Resp 16 06/16/19 07:44 BP 130/93 06/16/19 07:44 Pulse Ox 97 06/16/19 07:44 Vital Signs Reviewed: Yes Eyes: Positive: Conjunctiva Clear ENT: Positive: Hearing grossly normal. Negative: Nasal congestion, Nasal drainage, Trismus, Muffled voice, Hoarse voice Dental: Negative: Abscess @ Neck: Positive: Supple Respiratory: Positive: Lungs clear, Normal breath sounds, No respiratory distress, No accessory muscle use Cardiovascular: Positive: RRR, No Murmur Musculoskeletal: Positive: ROM Intact, No Edema, Other: - left calf tender/+ Homans Neurological: Positive: Alert, Other: - DTRs equal bilaterally, normal sensation Psychological Exam: Normal Skin Exam: Normal Diagnostics - Radiology No standard instances Radiology Interpretation Completed By: Radiologist Summary of Radiographic Findings: venous doppler left leg -negative Lower Extremity Course/Dx - Differential Dx/Diagnosis Provider Diagnosis: Nocturnal leg cramps Discharge ED - Sign-Out/Discharge Documenting (check all that apply): Patient Departure All imaging exams completed and their final reports reviewed: Yes - Discharge Plan Condition: Stable Disposition: HOME Prescriptions: Carisoprodol [Soma] 350 mg PO ONCE #14 tablet MDD 1 Patient Education Materials: Leg Cramps (ED) Referrals: Rosalinda Odell NP [Primary Care Provider] - As Soon As Possible Additional Instructions: blood work pending stretch legs before going to bed tylenol if needed - Billing Disposition and Condition Condition: STABLE Disposition: Home
[2019-06-16 15:33] LABS: Calcium 9.2 mg/dL (8.6-10.3); Potassium 4.3 mmol/L (3.5-5.0)
[2019-06-16 15:39] LABS: BUN/Creatinine Ratio 19.7 (8-20); EGFR African American 97.5 (>60); EGFR Non-African American 80.6 (>60)
== END 2019-06-16 09:20 | disposition home or self-care (01) ==
LOC: UCCORT 07:34
DX: R25.2 Cramp and spasm (principal); M79.10 Myalgia, unspecified site; F17.210 Nicotine dependence, cigarettes, uncomplicated; N02.8 Recurrent and persistent hematuria with other morphologic changes; I10 Essential (primary) hypertension
CPT/HCPCS: 36415; 80048; 83735; 99212; G0463